=== PATIENT | female | born 1990 | race Hispanic/Latino ===

== ENCOUNTER 2019-05-19 17:14 | Emergency (ER) | payer MEDICAID ==
[2019-05-19 17:46] LABS: Pregnancy Test - Urine (BHCG) Negative (Negative); Pregu Control Background? CLEAR/WHITE (CLR/WHITE); Pregu Control Bar Appear? YES (CONTROL BAR)
[2019-05-19 17:47] LABS: #Eosinphils 0.1 thou/uL (0.0-0.7); #Lymphocytes 2.6 thou/uL (1.20-3.40); #Monocytes 0.6 thou/uL (0.11-0.59); %Basophils 0.2 % (0.0-1.0); %Eosinophils 1.2 % (0.0-10.0); %Lymphocytes 27.5 % (21.0-51.0); %Monocytes 6.9 % (0.0-10.0); %Neutrophils 64.2 % (42.0-75.0); Hemoglobin 12.8 g/dL (12.0-16.0); Mean Corpuscular HGB CONC 33.6 g/dL (32.0-36.0); Mean Corpuscular Hemoglobin 29.4 pg (27.0-31.0); Mean Corpuscular Volume 87.7 fL (78.0-98.0); Mean Platelet Volume 7.4 fL (7.4-10.4); Platelet Count 292 thou/uL (130-400); RBC Distribution Width 11.4 % (11.5-14.5); Red Blood Cell (RBC) Count 4.36 mill/uL (4.20-5.40); White Blood Cell (WBC) Count 9.3 thou/uL (4.8-10.8)
[2019-05-19 17:48] LABS: Bilirubin Negative (Negative); Blood, Urine Negative (Negative); Clarity Clear (Clear); Glucose, Urine (Dipstick) Normal (Negative); Leukocyte Negative Leu/uL (Negative); Nitrite Negative (Negative); Protein, Urine (Dipstick) Negative (Neg-Trace); Urobilinogen Normal mg/dL (Less than 2)
--- NOTE | 2019-05-19 18:04 | ULT ---
ULTRASOUND ABDOMEN LIMITED: (RIGHT UPPER QUADRANT) DATE: 05/19/2019 HISTORY: 28-year-old female with right upper quadrant abdominal pain FINDINGS: Gallbladder:Mild mural thickening up to 4 mm. No pericholecystic fluid. No excessive distention. Mult iple gallstones. The larger stones are up to approximately 15 in size. Reportedly positive sonographic Luna sign. Common duct: 2 mm. Liver:Normal Pancreas:Normal Right kidney:Normal IMPRESSION: 1. Positive for cholelithiasis. 2. Equivocal for cholecystitis. Consider nuclear medicine hepatobiliary scan.
[2019-05-19 18:08] LABS: ALT (SGPT) 12 U/L (8-55); AST (SGOT) 11 U/L (5-34); Albumin 4.5 g/dL (3.5-5.0); Alkaline Phosphatase 56 U/L (40-150); Anion Gap 12 mmol/L (10-20); BUN (Urea Nitrogen) 14 mg/dL (7.0-18.7); Bilirubin, Total 0.3 mg/dL (0.2-1.2); Calc. Creatinine Clearance 0 mL/min (70-130); Calcium 9.1 mg/dL (7.8-10.44); Carbon Dioxide 22 mmol/L (22-29); Chloride 106 mmol/L (98-107); Estimated GFR-MDRD Greater than 90; Globulin 3.1 g/dL (2.4-3.5); Glucose 86 mg/dL (70-105); Lipase 23 U/L (8-78); Potassium 3.6 mmol/L (3.5-5.1); Protein, Total 7.6 g/dL (6.0-8.3); Sodium 136 mmol/L (136-145)
[2019-05-19] MEDS ORDERED: Ondansetron PF 4 MG/2 ML Vial ONE (18:56)
[2019-05-19] MEDS ORDERED: Ketorolac Tromethamine 60 MG/2 ML VIAL ONE (18:56)
== END 2019-05-19 21:00 | disposition home or self-care (01) ==
LOC: ERS 17:14
DX: K80.20 Calculus of gallbladder without cholecystitis without obstruction (principal)
CPT/HCPCS: 36415; 76705; 80053; 81003; 81025; 83690; 85025; 96374; 96375; J1885; J2405

== ENCOUNTER 2019-05-20 12:45 | Day surgery (SDC) | payer MEDICAID, SELFPAY ==
[2019-05-20] MEDS ORDERED: Ondansetron PF 4 MG/2 ML Vial ONE ×2 (13:11→13:24)
[2019-05-20] MEDS ORDERED: Morphine 4 MG/ML VIAL ONE ×2 (13:11→13:39)
[2019-05-20] MEDS ORDERED: Dexamethasone 20 MG/5 ML VIAL ONE (13:24)
[2019-05-20] MEDS ORDERED: Vecuronium 10 MG VIAL ONE (13:24)
[2019-05-20] MEDS ORDERED: PROPOFOL 200 MG/20 ML VIAL ONE (13:24)
[2019-05-20] MEDS ORDERED: Succinylcholine Chloride 20 MG/ML 10 ml SYRINGE FS ONE (13:24)
[2019-05-20] MEDS ORDERED: Lidocaine 1% PF 5 ML VIAL ONE (13:24)
[2019-05-20] MEDS ORDERED: Glycopyrrolate 0.2 MG/ML 5 ML SYRINGE ONE (13:24)
[2019-05-20 13:26] LABS: #Neutrophils 8.1 thou/uL (1.40-6.50); %Eosinophils 0.3 % (0.0-10.0); %Lymphocytes 9.8 % (21.0-51.0); %Monocytes 9.6 % (0.0-10.0); %Neutrophils 80.3 % (42.0-75.0); Hemoglobin 13.2 g/dL (12.0-16.0); Mean Corpuscular HGB CONC 33.3 g/dL (32.0-36.0); Mean Corpuscular Hemoglobin 29.2 pg (27.0-31.0); Mean Corpuscular Volume 87.9 fL (78.0-98.0); Mean Platelet Volume 7.5 fL (7.4-10.4); Platelet Count 272 thou/uL (130-400); RBC Distribution Width 11.5 % (11.5-14.5); Red Blood Cell (RBC) Count 4.52 mill/uL (4.20-5.40)
[2019-05-20 13:48] LABS: ALT (SGPT) 479 U/L (8-55); AST (SGOT) 671 U/L (5-34); Albumin 4.5 g/dL (3.5-5.0); Alkaline Phosphatase 103 U/L (40-150); Anion Gap 13 mmol/L (10-20); BUN (Urea Nitrogen) 10 mg/dL (7.0-18.7); Calc. Creatinine Clearance 0 mL/min (70-130); Calcium 9.3 mg/dL (7.8-10.44); Carbon Dioxide 23 mmol/L (22-29); Chloride 103 mmol/L (98-107); Estimated GFR-MDRD Greater than 90; Globulin 3.3 g/dL (2.4-3.5); Glucose 108 mg/dL (70-105); Potassium 3.9 mmol/L (3.5-5.1); Protein, Total 7.8 g/dL (6.0-8.3); Sodium 135 mmol/L (136-145)
[2019-05-20] MEDS ORDERED: Piperacillin/Tazobactam 4.5 GM VIAL ONE (14:14)
[2019-05-20] MEDS ORDERED: Iothalamate Meglumine 60% 50 ML VIAL FS ONE (15:02)
[2019-05-20] MEDS ORDERED: Bupivacaine/Epinephrine 0.25% 30 ML VIAL ONE (15:02)
[2019-05-20] MEDS ORDERED: Fentanyl 100 MCG/2 ML VIAL ONE ×2 (15:32→17:46)
[2019-05-20] MEDS ORDERED: Ketorolac Tromethamine 30 MG/ML VIAL ONE (17:50)
--- NOTE | 2019-05-20 19:45 | HP ---
CHIEF COMPLAINT: Right upper quadrant abdominal pain. HISTORY OF PRESENT ILLNESS: The patient is a pleasant 28-year-old female. She was diagnosed with cholelithiasis about 10 years ago on her visit to the emergency room. For a variety of reasons, she never had her gallbladder removed. She tells me that over the years she has had intermittent symptoms of upper abdominal pain. She began having worsening pain last night and presented to the emergency room. In the emergency room, evaluation revealed normal liver function tests and a normal CBC. Gallbladder ultrasound revealed cholelithiasis without definite evidence of cholecystitis. She was discharged home with nausea medication and instructed to follow up outpatient. Unfortunately, her symptoms progressed and became much worse. She developed ongoing worsening pain with severe vomiting as well. She re-presented to the emergency room this morning. Repeat laboratory studies revealed that her bilirubin was elevated from normal up to 2.0, and her transaminases were significantly elevated. Her lipase level, however, remains normal. PAST MEDICAL HISTORY: Unremarkable. PAST SURGICAL HISTORY: x2. MEDICATIONS: None. ALLERGIES: NO KNOWN DRUG ALLERGIES. PERSONAL AND SOCIAL HISTORY: She is , with 2 young children. 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 She does not smoke nor does she drink alcohol. REVIEW OF SYSTEMS: Otherwise, unremarkable. FAMILY HISTORY: Noncontributory. PHYSICAL EXAMINATION: VITAL SIGNS: She is afebrile with normal vital signs. GENERAL: She is a well-developed, well-nourished, pleasant, female, resting in bed, in no acute distress. She is alert and oriented x3. HEAD, EYES, EARS, NOSE, AND THROAT: Unremarkable. NECK: Supple without mass or tenderness. LUNGS: Clear to auscultation throughout. CARDIAC: Regular rate and rhythm without murmur. ABDOMEN: Soft on the left, but with focal tenderness in the right upper quadrant with guarding consistent with positive Luna sign. EXTREMITIES: Unremarkable. ASSESSMENT: The patient with acute cholecystitis. PLAN: Laparoscopic cholecystectomy. I have discussed the operation in detail with the patient as well as potential risks. She understands and agrees to proceed with surgery at this time. Job ID: [id number]
--- NOTE | 2019-05-21 09:25 | RAD ---
Intraoperative cholangiogram 2 views: 05/20/2019 HISTORY: 28-year-old female with cholelithiasis. FINDINGS: 2 images from the OR. Both are degraded by motion. No dilation of the common bile duct or common hepa tic duct, or the proximal hepatic duct branches. Contrast material in the duodenum. No definite filling defect identified. IMPRESSION: 1. Limited study because of motion. 2. No evidence of biliary obstruction or any definite choledocholithiasis.
--- NOTE | 2019-05-22 01:05 | OP ---
DATE OF PROCEDURE: 05/20/2019 PREOPERATIVE DIAGNOSIS: Acute cholecystitis with cholelithiasis and elevated liver function tests. POSTOPERATIVE DIAGNOSIS: Acute cholecystitis with cholelithiasis and elevated liver function tests. OPERATION PERFORMED: Laparoscopic cholecystectomy with intraoperative cholangiogram. ANESTHESIA: General endotracheal. INDICATIONS: The patient is a 28-year-old female. She presented to the emergency room twice within a 24-hour period. Her liver function tests had jumped dramatically between the first and second visits. Her bilirubin was 2, and I therefore recommended a cholangiogram at the time of her surgery. DESCRIPTION OF OPERATION: Informed consent was obtained. The patient was taken to the operating room where general endotracheal anesthesia was obtained with the patient in the supine position. The abdomen was prepped with Betadine and draped in the usual sterile fashion. 0.25% Marcaine with epinephrine was infiltrated below the umbilicus and a 10 mm infraumbilical incision was created. A Veress needle was passed through this incision into the peritoneal cavity. A pneumoperitoneum was established using carbon dioxide up to a pressure of 15 mmHg. Local anesthetic was infiltrated and 3 additional 5 mm right upper quadrant incisions were created. Through the mid incision, a 5 mm port was passed into the peritoneal cavity. The camera was passed through this port and under direct vision, an 11 port was passed through the infraumbilical incision. The camera was replaced through this port, and under direct vision, 2 additional 5 mm ports were passed through the incisions already created. The gallbladder was grasped and retracted in a cephalad direction. Minimal adhesions were bluntly stripped away from the apex of the gallbladder, and the apex was retracted laterally and inferiorly. Careful dissection was carried out to the apex of the gallbladder to identify the cystic duct and cystic artery. These were each carefully dissected circumferentially. The duct was of normal caliber. Both the duct and the artery were divided between clips, leaving 2 on the side to remain within the abdomen. The gallbladder was then dissected out of the gallbladder fossa using electrocautery and removed through the infraumbilical port site. The fascia was closed with 0 Vicryl suture and a GraNee needle. The right upper quadrant was inspected and irrigated. All irrigant was aspirated. All ports and instruments were removed under direct vision. Pneumoperitoneum was carefully evacuated. Additional local anesthetic was infiltrated into each port site. The skin edges were approximated with 4-0 Monocryl subcuticular sutures, and Dermabond was placed externally. There were no complications. The patient tolerated the procedure well and was taken to the recovery room in stable condition. FINDINGS: The patient's gallbladder was somewhat inflamed. There were some pericholecystic adhesions that were taken down easily. Because of her elevated bilirubin, I obtained a cholangiogram in a standard fashion. This, however, revealed normal biliary anatomy with easy emptying into the duodenum and no evidence of filling defects. The patient tolerated the procedure well and was taken to recovery room in stable condition. Job ID: [id number]
== END 2019-05-20 18:40 | disposition home or self-care (01) ==
LOC: ERS 12:45 → SDC 15:30
PROVIDERS: ATTEND Specialist
PROC: BF101ZZ Fluoroscopy of Bile Ducts using Low Osmolar Contrast (ICD-10-PCS; principal; 2019-05-20)
PROC: 0FT44ZZ Resection of Gallbladder, Percutaneous Endoscopic Approach (ICD-10-PCS; principal; 2019-05-20)
DX: K80.12 Calculus of gallbladder with acute and chronic cholecystitis without obstruction (principal); K82.8 Other specified diseases of gallbladder
CPT/HCPCS: 47532; 80053; 83690; 85025; 88304; J1100; J1885; J2001; J2270; J2405; J2543; J2704; J3010